=== PATIENT | female | born 1995 | race Caucasian/White ===

== ENCOUNTER 2016-09-27 05:44 | Emergency (ER) | payer SELFPAY ==
[~2016-09-27] VITALS: Ht 162.6 cm; Wt 52.2 kg
--- OUTSIDE RECORDS SUMMARY | 2016-09-27 05:49 | XMS REPORT | Continuity Of Care Document ---
Author Author [facility] Organization [facility] Address [address] [place] [address] Phone Care Team Providers Care Egg Packer Name Role Phone SHANNON YE, A AT THOMAS YE, E PP [phone] CAPO YE, B AT [phone] Results Lab Results Visit/Account #[id number] (February 17, 2015 10:24pm - February 20, 2015 11: 30am) Test Result Date/Time 44571-2: COMPLETE BLOOD COUNT WHITE BLOOD COUNT(4.0-11.0 10E3/UL) 14.4 10E3/UL February 17, 2015 3:20am RED BLOOD COUNT(4.00-5.20 10E6/UL) 3.60 10E6/UL February 17, 2015 3:20am HEMOGLOBIN(12.0-16.0 G/DL) 11.4 G/DL February 17, 2015 3:20am HEMATOCRIT(36.0-46.0 %) 33.9 % February 17, 2015 3:20am MEAN CORPUSCULAR VOLUME(82.0-100.0 FL) 94.2 FL February 17, 2015 3:20am 56616-1: MEAN CORPUSCULAR HEMOGLOBIN(26.0-34.0 PG) 31.7 PG February 17, 2015 3:20am MEAN CORPUSCULAR HGB CONC(31.5-36.5 G/DL) 33.6 G/DL February 17, 2015 3:20am RED CELL DISTRIBUTION WIDTH(11.5-14.5 %) 12.0 % February 17, 2015 3:20am 777-3: PLATELET COUNT(150-450 10E3/UL) 224 10E3/UL February 17, 2015 3:20am MEAN PLATELET VOLUME(8.2-12.4 FL) 10.3 FL February 17, 2015 3:20am NUCLEATED RBCS (AUTO)(0-0 %) 0 % February 17, 2015 3:20am URINALYSIS, DIPSTICK INF CNTRL 5778-6: COLOR,URINE YELLOW February 19, 2015 6:00pm 13590-0: CLARITY,URINE CLEAR February 19, 2015 6:00pm GLUCOSE, URINE(NEGATIVE MG/DL) NEGATIVE MG/DL February 19, 2015 6:00pm URINE BILIRUBIN(NEGATIVE) NEGATIVE February 19, 2015 6:00pm 77116-6: KETONES,URINE(NEGATIVE MG/DL) NEGATIVE MG/DL February 19, 2015 6:00pm 2965-2: URINE SPECIFIC GRAVITY(1.001-1.035) Less than or equal to 1.005 February 19, 2015 6:00pm 44599-6: URINE BLOOD(NEGATIVE) SMALL February 19, 2015 6:00pm 2756-5: URINE PH(5.0-9.0) 6.0 February 19, 2015 6:00pm URINE PROTEIN(Less than 20 MG/DL) NEGATIVE MG/DL February 19, 2015 6:00pm URINE UROBILINOGEN(0.2-1.0 MG/DL) 0.2 MG/DL February 19, 2015 6:00pm URINE NITRITE(NEGATIVE) NEGATIVE February 19, 2015 6:00pm 5799-2: LEUKOCYTE ESTERASE ,URINE(NEGATIVE) NEGATIVE February 19, 2015 6:00pm 630-4: URINE CULTURE NOT INDICATED February 19, 2015 6:00pm Microbiology Results Visit/Account #[id number] (February 17, 2015 10:24pm - February 20, 2015 11: 30am) Procedure Result 04628-0: MRSA SCREEN FOR INFEC CONTROL 89078-6: MRSA SCREEN FOR INFEC CONTROL Result Instance On February 18, 2015 3:20am Source: RAMIRO Special Result Comments: No growth Bloodbank Results Visit/Account #[id number] (February 17, 2015 10:24pm - February 20, 2015 11: 30am) Test Result ABO/RH 94192-6: BLOOD TYPE O NEGATIVE on February 17, 2015 3:20am ANTIBODY SCREEN ANTIBODY SCREEN POSITIVE on February 17, 2015 3:20am 888-8: ANTIBODY IDENTIFICATION 888-8: ANTIBODY IDENTIFICATION Antibody: Anti-D UNKNOWN RHOGAM DATE. PT REPORTS A COUPLE MONTHS AGO. RHOPHYLAC INDICATION RHOPHYLAC INDICATION NOT INDICATED on February 18, 2015 2:46pm Allergies and Adverse Reactions Allergies and Adverse Reactions Patient Unit Number: [id number] Agent Type Reaction Severity Status NO KNOWN DRUG ALLERGIES Drug Allergy Unknown Unknown Active Problem List Problem List Visit/Account #[id number] (February 17, 2015 10:24pm - February 20, 2015 11: 30am) Acute Problems: Code/Condition Comments Documented Start Date Documented Resolved Date Code (s) (spontaneous vaginal delivery) ICD10: O80 Spontaneous vaginal delivery ICD9: 650 Spontaneous vaginal delivery SNOMED: 32939551 Spontaneous vaginal delivery ICD10: Z33.1 ICD9: V22.2 SNOMED: 82692176 Plan of Care Plan Of Care Visit/Account #[id number] (February 17, 2015 10:24pm - February 20, 2015 11: 30am) Patient Instructions Instructions [facility] DI VAGINAL Vaginal Delivery Instructions [facility] To help guide you through your recovery, your doctor has made the following suggestions: Diet: 1. You may eat a regular diet unless you had diet restrictions before your delivery. 2. Eat a well-balanced diet. 3. Continue vitamins. 4. If not , take your vitamins until they are gone. 5. Drink at least two quarts of fluid daily. If , drink one extra quart. Activity: Expect your energy level to be low the first few weeks after the babys . Listen to your body and pace yourself. Do not hesitate to nap when necessary. Your doctor will encourage you to do some exercise, like walking. A new mother can start exercises to strengthen abdominal muscles, often after 1 day if delivery was vaginal. May begin exercises: 1. Leg lifts 2. Mild hip rolls 3. Sit-up, very gently (Sit-ups with bent knees, done in bed, are effective) However, most women are too tired to start exercising so soon after delivery. Gradually increase your activity and exercise over time. Women can resume their prepregnancy exercise routine after approval from their doctor at their visit. Physical Care: 1. Shallow tub bath or shower daily. 2. No douches or use of tampons until your doctors visit at 5 to 6 weeks. 3. If breasts become full and painful and you are not , you can apply a binder and ice packs. DO NOT EXPRESS MILK FROM BREASTS. 4. If hemorrhoids are swollen and painful, use tub bath, Nupercaine ointment ( as labeled), Anusol suppositories (as labeled), and/or Witch jimbo pads. 5. Should your stitches become uncomfortable, sitz baths three times a day may be quite soothing. Vaginal Discharge: The amount of bleeding a woman has is quite variable. The important thing is that is should not ever become extremely heavy. You may bleed off and on, or have some element of discharge for 6-8 weeks after delivery. External cleansing of the vaginal area is all that is necessary. DO NOT DOUCHE, USE TAMPONS, OR HAVE INTERCOURSE UNTIL AFTER YOUR DOCTORS VISIT. Contraception: Even if you are , it is possible that you could become if no means of control is used. If you should choose to resume intercourse before your check-up, it is advised that contraceptive foam and a condom be used. At the time of your check-up contraception can be discussed. Comfort Management: Pain medicine may be prescribed. Please follow the directions on the label. If pain medication is not prescribed, you may take Tylenol (acetaminophen) or Motrin (ibuprofen) as label indicates for pain. Bowel Habits: You may have a change in your bowel habits. If you become constipated it is best to try some dietary changes such as increasing the amount of fluid you drink and the amount of fiber (bulk) in your diet (bran flakes, prune juice, Metamucil, senakot). If you continue to have constipation, you may try some ptjg-ydq-jjwvslp medications such as Colace, Milk of Magnesia or MiraLAX . Emotional Health: It is not unusual for women to have feelings of irritability, sadness, crying or anxiety after delivery. Your family can help support you through these changes. Call your doctor if you have: 1. A temperature above 100.4 degrees. 2. Unusual pain that does not respond to pain medication. 3. Excessive vaginal bleeding. (Saturating more than a one pad an hour or passing clot larger than a quarter two or more times) 4. Foul smelling vaginal discharge. 5. Feelings of depression lasting more than 2 weeks, are unable to care for yourself or baby or have feelings of hurting yourself or baby. Follow-up care: Make an appointment 5-6 weeks after delivery for a follow-up examination as instructed by your doctor. Questions: If you have any questions or concerns, please call your doctors office. If you feel the need to contact the doctor after regular office hours, you can call the physicians exchange. If you are unable to contact your doctor and if you feel your condition is worsening, please go to the nearest emergency room. Vital Signs Vital Signs Visit/Account #[id number] (February 17, 2015 10:24pm - February 20, 2015 11: 30am) Sign First Result Last Result Code(s) Blood Pressure 112/ 50 mm[Hg] On February 18, 2015 11:30pm 115/ 70 mm[Hg] On February 20, 2015 11:15am 8480-6 BP Systolic Heart Rate/Pulse Pulse Rate (adult): 80 /min On February 18, 2015 11:30pm Pulse Rate (adult): 90 /min On February 20, 2015 11:15am 8867-4 Heart Rate 8893-0 Pulse rate Respiratory Rate Respiratory Rate: 12 /min On February 18, 2015 11:30pm Respiratory Rate: 18 /min On February 20, 2015 11:15am 9279-1 Respiratory rate Temperature in Fahrenheit Temperature (Fahrenheit): 98.1 [degF] On February 18, 2015 11:30pm Temperature (Fahrenheit): 98.0 [degF] On February 20, 2015 11:15am 8310-5 Body Temperature Functional Status Functional and Cognitive Status No Functional Status Data Medications Home Medications - Medications that the patient was taking prior to arrival at the hospital Visit/Account #[id number] (February 17, 2015 10:24pm - February 20, 2015 11: 30am) Medication Route Sig/Schedule Precondition/Indication Comments/ Instructions Codes AUGMENTIN 875-125(AMOXICILLIN/CLAVULANATE K) 1 EACH TABLET Dose: 875 MG ORAL TWICE A DAY Amoxicillin 875 MG / Clavulanate 125 MG Oral Tablet [Augmentin] (RxNorm): 701488 AUGMENTIN 875-125 (AMOXICILLIN/CLAVULANATE K) NDC: 55022145884 VITAMINS TABLET( VIT/IRON FUMARATE/FA) 1 EACH TABLET Dose: 1 EACH ORAL DAILY VITAMINS TABLET ( VIT/IRON FUMARATE/FA) NDC: 38792999644 Inpatient/Ordered Medications - Medications administered during hospital visit Visit/Account #[id number] (February 17, 2015 10:24pm - February 20, 2015 11: 30am) Medication Route Sig/Schedule Precondition/Indication Comments/ Instructions Codes IV Medication Carriers: OXYTOCIN/RINGERS LACTATE 30 UNIT/500 ML INJECTION Dose: 500 ML INTRAVEN .Q2H30M (Rate: 200 MLS/HR Duration: 2 HR 30 MIN) Rx Order Comments: Order filed UNV: Dose Warnings differ from computerized mill recorder Label Comments: after delivery of placenta. run for 2 hrs Carriers: Oxytocin 0.06 UNT/ML Injectable Solution (RxNorm): 365174 (OXYTOCIN/RINGERS LACTATE) NDC: 58622583832 IV Medication Carriers: OXYTOCIN/RINGERS LACTATE 30 UNIT/500 ML INJECTION Dose: 500 ML INTRAVEN .Q0M (Rate: 0 MLS/HR Duration: 0 SEC) PRN Reason: INDUCTION/AUGMENTATION LABOR Label Comments: Conc: 60 milliunits/mL Initiate at 1 milliunits/minute and increase infusion by 2-4 milliunits/minute every 20-30 minutes to a max of 36 milliunits/minute until desired contraction pattern is established. Carriers: Oxytocin 0.06 UNT/ML Injectable Solution (RxNorm): 612945 (OXYTOCIN/RINGERS LACTATE) NDC: 31833442160 IV Medication Carriers: LR(LACTATED RINGER'S) 1000 ML INJECTION Dose: 1000 ML INTRAVEN .Q8H (Rate: 125 MLS/HR Duration: 8 HR) Carriers: Calcium Chloride 0.0014 MEQ/ML / Potassium Chloride 0.004 MEQ/ML / Sodium Chloride 0.103 MEQ (RxNorm): 166905 LR (LACTATED RINGER'S) NDC: 10190853749 IV Medication Additives: PFIZERPEN-G(PENICILLIN G POTASSIUM) 5 MMU INJECTION Dose: 5 MMU Carriers: DEXTROSE 100 ML INJECTION Dose: 100 ML INTRAVEN NOW (Rate: 100 MLS/HR Duration: 1 HR) Clinical Indication: ABX non-surgical pt Label Comments: for initial dose Additives: Penicillin G Potassium 6239261 UNT/ML Injectable Solution [Pfizerpen] (RxNorm): 138059 PFIZERPEN-G (PENICILLIN G POTASSIUM) NDC: 90699407222 Carriers: Glucose 50 MG/ML Injectable Solution (RxNorm): 063970 (DEXTROSE) NDC: 13764681930 IV Medication Additives: PFIZERPEN-G(PENICILLIN G POTASSIUM) 5 MMU INJECTION Dose: 2.5 MMU Carriers: DEXTROSE 100 ML INJECTION Dose: 100 ML INTRAVEN Q4H (Rate: 100 MLS/HR Duration: 1 HR) Clinical Indication: ABX non-surgical pt Rx Order Comments: Order filed UNV: Allergies/Duplicates/Interactions differ from computerized mill recorder Label Comments: maintenance dose until delivery. Refrigerate until use. Additives: Penicillin G Potassium 8226145 UNT/ML Injectable Solution [Pfizerpen] (RxNorm): 022387 PFIZERPEN-G (PENICILLIN G POTASSIUM) NDC: 78168138936 Carriers: Glucose 50 MG/ML Injectable Solution (RxNorm): 045970 (DEXTROSE) NDC: 67086366847 IV Medication Carriers: LR(LACTATED RINGER'S) 1000 ML INJECTION Dose: 1000 ML INTRAVEN .Q1H (Rate: 1000 MLS/HR Duration: 1 HR) Label Comments: Give bolus before epidural initiation. If patient has hypertension, notify anesthesiologist before initiation. Carriers: Calcium Chloride 0.0014 MEQ/ML / Potassium Chloride 0.004 MEQ/ML / Sodium Chloride 0.103 MEQ (RxNorm): 429332 LR (LACTATED RINGER'S) NDC: 56867108452 MOTRIN(IBUPROFEN) 800 MG TAB Dose: 800 MG ORAL EVERY 8 HOURS Label Comments: Patient may refuse, but encourage use. Ibuprofen 800 MG Oral Tablet (RxNorm): 319398 MOTRIN (IBUPROFEN) NDC: 82752092198 PERCOCET 5/325(OxyCODONE/ACETAMINOPHEN) 1 TAB TAB Dose: 0 TAB ORAL Q4H PRN Reason: MODERATE TO SEVERE PAIN Label Comments: (pain level 4-10) Use if hydrocodone/acetaminophen is ineffective or patient cannot tolerate. Special Dose Instructions: 1-2 TABS Acetaminophen 325 MG / Oxycodone Hydrochloride 5 MG Oral Tablet (RxNorm): 8259162 PERCOCET 5/325 (OxyCODONE/ACETAMINOPHEN) NDC: 27804560339 COLACE(DOCUSATE SODIUM) 100 MG CAP Dose: 100 MG ORAL TWICE A DAY PRN Reason: CONSTIPATION Docusate Sodium 100 MG Oral Capsule (RxNorm): 7256962 COLACE (DOCUSATE SODIUM) NDC: 63012941313 TUCKS(WITCH JIMBO/GLYCERIN) 1 EA PAD Dose: 1 EA TOPICALLY NEEDED PRN Reason: EPISIOTOMY/HEMMORRHOIDS Witch Jimbo 500 MG/ML Medicated Pad [Tucks] (RxNorm): 4871350 TUCKS (WITCH JIMBO/GLYCERIN) NDC: 74957540297 DERMOPLAST(BENZOCAINE/MENTHOL) 60 GM SPRAY Dose: 0 GM TOPICALLY NEEDED PRN Reason: PAIN Special Dose Instructions: 1 SPRAY DERMOPLAST (BENZOCAINE/MENTHOL) NDC: 09123084787 Discharge Medications - Medications that patient should continue to take. Review with physician Visit/Account #[id number] (February 17, 2015 10:24pm - February 20, 2015 11: 30am) Medication Route Sig/Schedule Precondition/Indication Comments/ Instructions Codes VITAMINS TABLET( VIT/IRON FUMARATE/FA) 1 EACH TABLET Dose: 1 EACH ORAL DAILY VITAMINS TABLET ( VIT/IRON FUMARATE/FA) NDC: 82374015885 History Of Encounters Encounters Visit/Account #[id number] (February 17, 2015 10:24pm - February 20, 2015 11: 30am) Account Status Physican Of Record Reason For Visit Visit Diagnosis Start Date/Time Stop Date/Time CLI BRIANA ORTEGA MD LABOR CHECK V22.0: SUPERVIS NORMAL 1ST PREG ICD9 Feb 17, 2015 10:24pm Feb 17, 2015 10:24pm IN CESIA SCANLON MD LABOR CHECK V22.0: SUPERVIS NORMAL 1ST PREG ICD9 Feb 17, 2015 11:05pm Feb 20, 2015 11:30am History of Procedures Procedure List Visit/Account #[id number] (February 17, 2015 10:24pm - February 20, 2015 11: 30am) Code/Procedure Date 72.1: LOW FORCEPS W EPISIOTOMY February 18, 2015 75.62: REPAIR OB LAC RECT/ANUS February 18, 2015 Discharge Instructions Discharge Instructions Visit/Account #[id number] (February 17, 2015 10:24pm - February 20, 2015 11: 30am) DISCHARGE INSTRUCTIONS Physician Documentation PROVIDER INSTRUCTIONS Discharge Diet As Tolerated Other Discharge Instructions - No intercourse and nothing in the vagina until seen by physician - Continue vitamins if - Follow your doctor's printed instructions WOUND/INCISION/CATHETER CARE Episiotomy/Wound Care Please follow these instructions: - Keep bottom clean & dry, wash with soap & water daily - Change pads frequently. May sit in shallow tub of warm water 3-4 times daily for discomfort. REASON TO CALL PROVIDER Notify Physician if: You have the following: - Heavy bleeding (more than one pad per hour) - Foul smelling discharge from vagina or incision - Passing of large clots ( bigger than a quarter) - Severe pain or temperature above 100.4 degrees F. FOLLOW UP APPOINTMENTS Follow up appointment 5 - 6 weeks Social History Social History No Social History Data. Immunizations Immunizations Patient Unit Number: [id number] Immunizations No immunizations recorded.
[2016-09-27 06:36] LABS: BILIRUBIN,URINE Negative (Negative); COLOR,URINE Yellow; GLUCOSE, URINE (UA) Negative (Negative); LEUKOCYTE ESTERASE ,URINE Negative (Negative); UROBILINOGEN,URINE 0.2 mg/dL (0.2-1.0)
[2016-09-27 06:44] LABS: HCG,QUALITATIVE URINE Negative (Negative)
--- NOTE | 2016-09-27 06:53 | NUR ---
Pt report given to Sergio Hoang RN for continued care of pt
[2016-09-27 06:59] LABS: CLARITY,URINE Slightly Cloudy
[2016-09-27 07:00] LABS: URINE CENTRIFUGED VOLUME 12 mL
[2016-09-27 07:03] LABS: AMORPHOUS SEDIMENT,UR 2+ /HPF
[2016-09-27] MEDS ORDERED: KETOROLAC 30 MG/ML (TORADOL) 1 ML VIAL IV ONE (07:15)
[2016-09-27] MEDS ORDERED: ONDANSETRON 2 MG/ML (Z0FRAN) 2 ML VIAL IV ONE (07:15)
[2016-09-27] MEDS ORDERED: SODIUM CHLORIDE FLUSH 3 ML SYR IV ONE (07:15)
[2016-09-27] MEDS ORDERED: SODIUM CHLORIDE FLUSH 10 ML SYR IV PRN (07:15)
[2016-09-27 07:32] LABS: BASOPHILS % (AUTO) 0 % (0-2); EOSINOPHILS # (AUTO) 0.2 10^3uL; EOSINOPHILS % (AUTO) 1 % (0-4); LYMPHOCYTES # (AUTO) 1.2 X10^3; MEAN CORPUSCULAR HEMOGLOBIN 29.5 PG (26.0-34.0); MEAN CORPUSCULAR HGB CONC 33.8 g/dL (31.0-37.0); MEAN CORPUSCULAR VOLUME 87 FL (80-100); MEAN PLATELET VOLUME 9.8 FL (6.0-9.5); MONOCYTES % (AUTO) 8 % (3-11); NEUTROPHILS # (AUTO) 10.7 X10^3; NEUTROPHILS % (AUTO) 81 % (51-67); PLATELET COUNT 267 10^3uL (150-450); WHITE BLOOD COUNT 13.18 10^3uL (4.0-11.0)
[2016-09-27 07:48] LABS: ALKALINE PHOSPHATASE 79 U/L (38-126); AMYLASE* 59 U/L (25-115); ANION GAP 15.7 MEQ/L (3-15); BUN/CREATININE RATIO 21 (10-20); CALCULATED IONIZED CALCIUM 3.8 mg/dL (3.8-4.6); LIPASE* 95 U/L (23-300); TOTAL PROTEIN 7.1 g/dL (6.4-8.5)
--- NOTE | 2016-09-27 08:12 | NUR ---
PT WITH FRIEND AT BEDSIDE. PT STATES SHE VOMITED X1 TODAY. PT LAUGHING WITH FRIEND WHEN THIS RN CHECKS PT FOR PAIN RATE. STATES PAIN ALMOST GONE. RATES 07/28. CL
--- NOTE | 2016-09-27 08:19 | Diagnostic Imaging Report ---
PROCEDURE: US Gallbladder. TECHNIQUE: Multiple real-time grayscale images were obtained over the right upper quadrant in various projections. INDICATION: Right upper quadrant pain. COMPARISON: None available. FINDINGS: The liver is normal in size and echogenicity. There is no focal hepatic mass. The main portal vein is patent with antegrade flow. The gallbladder is distended without gallstones, wall thickening, or pericholecystic fluid. The common bile duct measures up to 0.1 cm in diameter. No intrahepatic biliary dilation. The visualized portions of the pancreas are normal. Portions of the head and tail are obscured by overlying bowel gas. The right kidney is normal in size. No hydronephrosis, shadowing calculi, or suspicious mass lesion. No ascites within the right upper quadrant. IMPRESSION: 1. Normal right upper quadrant ultrasound. Specifically, the gallbladder and common bile duct are normal. Dictated by: Dictated on workstation # [id number]
[2016-09-27] MEDS ORDERED: ONDA4TAB8 PO (08:24)
[2016-09-27 08:40] VITALS: BP 83/50
== END 2016-09-27 08:45 | disposition home or self-care (01) ==
LOC: ED 05:47
DX: R10.13 Epigastric pain (principal); R11.2 Nausea with vomiting, unspecified
CPT/HCPCS: 36415; 76705; 80053; 81003; 81015; 81025; 82150; 83690; 85025; 86140; 96361; 96374; 96375; 99284; J1885; J2405; J7030; 99283